=== PATIENT | female | born 1945 | race Caucasian/White ===

== ENCOUNTER 2018-05-05 10:21 | Outpatient (CLI) | payer MEDICARE, BC | END 2018-05-05 10:22 | disposition home or self-care (01) | LOC: BICMAMMO 10:21 | PROVIDERS: ATTEND Family Medicine | DX: Z12.31 Encounter for screening mammogram for malignant neoplasm of breast (principal) | CPT/HCPCS: 77063; 77067 ==

== ENCOUNTER 2018-11-27 10:47 | Outpatient (CLI) | payer MEDICARE, BC ==
--- NOTE | 2018-11-27 12:59 | ULT ---
THYROID ULTRASOUND: HISTORY: Thyroid nodule. TECHNIQUE: Real-time imaging of the right and left lobes of the gland was performed. FINDINGS: The right lobe measures 1.8 x 1.5 x 4.6 cm. The left lobe measures 1.1 x 1.2 x 3.1 cm. On the right side, in the mid pole region, there is 1.1 x 1.4 cm, solid lesion, which is isoechoic to perhaps slightly hyperechoic. It is wider than tall. It does have some punctate echogenic foci ass ociated with it. On the left side, there is a similar but slightly smaller lesion, measuring approximately 9 x 14 mm. IMPRESSION: Bilateral TI-RADS 4 lesions-Moderately suspicious. Fine needle aspiration is recommended only at gre ater than 1.5 cm so, in this case, a follow-up ultrasound examination at 6-12 months would be recomme nded. POS: [facility]
== END 2018-11-27 10:48 | disposition home or self-care (01) ==
LOC: BICULT 10:47
PROVIDERS: ATTEND Family Medicine
DX: E04.1 Nontoxic single thyroid nodule (principal)
CPT/HCPCS: 76536

== ENCOUNTER 2019-06-11 12:12 | Outpatient (CLI) | payer MEDICARE, BC ==
--- NOTE | 2019-06-11 13:27 | ULT ---
THYROID ULTRASOUND: COMPARISON: 11/27/2018. HISTORY: Hypothyroidism. Thyroid nodules. FINDINGS: Thyroid isthmus measures 0.23 cm. Right thyroid lobe measures 4.6 x 1.8 x 1.5 cm. Left thyroid lobe measures 1.2 x 1.1 x 3.1 cm. In the mid right thyroid lobe is a 1.4 x 1.1 x 1.0 cm solid nodule. In the upper pole of the left thy roid lobe there is a 0.9 x 0.8 x 1.4 cm solid nodule with small echogenic foci suggesting calcifications. Previously, the right thyroid nodule measured 1.4 x 1.1 x 1.1 cm. Left thyroid nodule measured 1.3 x 1.2 x 1.5 cm. Both nodules appear to be stable IMPRESSION: Left and right thyroid nodules. Nodules have a TIRAD calculator score of TR4, moderately suspicious. Fine-needle aspiration of both nodules is recommended. Transcribed Date/Time: 06/11/2019 1:35 PM
== END 2019-06-11 12:13 | disposition home or self-care (01) ==
LOC: BICULT 12:12
PROVIDERS: ATTEND Family Medicine
DX: E03.9 Hypothyroidism, unspecified (principal); E04.2 Nontoxic multinodular goiter
CPT/HCPCS: 76536

== ENCOUNTER 2019-10-22 13:41 | Emergency (ER) | payer MEDICARE, BC ==
[2019-10-22 14:08] LABS: #Basophils 0.1 thou/uL (0.0-0.2); #Eosinphils 0.2 thou/uL (0.0-0.7); #Monocytes 0.5 thou/uL (0.11-0.59); #Neutrophils 5.8 thou/uL (1.40-6.50); %Basophils 0.7 % (0.0-1.0); %Lymphocytes 23.2 % (21.0-51.0); %Monocytes 5.5 % (0.0-10.0); %Neutrophils 68.6 % (42.0-75.0); Hemoglobin 12.8 g/dL (12.0-16.0); Mean Corpuscular HGB CONC 35.2 g/dL (32.0-36.0); Mean Corpuscular Hemoglobin 31.6 pg (27.0-31.0); Mean Corpuscular Volume 89.8 fL (78.0-98.0); Mean Platelet Volume 7.7 fL (7.4-10.4); Platelet Count 363 thou/uL (130-400); RBC Distribution Width 11.3 % (11.5-14.5); Red Blood Cell (RBC) Count 4.06 mill/uL (4.20-5.40); White Blood Cell (WBC) Count 8.5 thou/uL (4.8-10.8)
--- NOTE | 2019-10-22 14:25 | RAD ---
CHEST 1 VIEW: Date: 10/22/2019 HISTORY: Shortness of breath and low blood pressure. FINDINGS: Heart size is within normal limits. Lungs are clear. No confluent pneumonia, overt edema, or pleural effusion. IMPRESSION: No significant acute intrathoracic disease. POS: [facility]
[2019-10-22 14:29] LABS: ALT (SGPT) 18 U/L (8-55); AST (SGOT) 17 U/L (5-34); Albumin 4.2 g/dL (3.4-4.8); Alkaline Phosphatase 72 U/L (40-110); Anion Gap 12 mmol/L (10-20); BUN (Urea Nitrogen) 13 mg/dL (9.8-20.1); Bilirubin, Total 0.3 mg/dL (0.2-1.2); Calc. Creatinine Clearance 0 mL/min (70-130); Carbon Dioxide 28 mmol/L (23-31); Chloride 101 mmol/L (98-107); Estimated GFR-MDRD 52; Globulin 2.6 g/dL (2.4-3.5); Glucose 112 mg/dL (83-110); Protein, Total 6.8 g/dL (6.0-8.3); Sodium 137 mmol/L (136-145)
== END 2019-10-22 16:03 | disposition home or self-care (01) ==
LOC: ERS 13:41
DX: R53.1 Weakness (principal); R06.02 Shortness of breath; T46.5X5A Adverse effect of other antihypertensive drugs, initial encounter; E03.9 Hypothyroidism, unspecified; I10 Essential (primary) hypertension; Z79.899 Other long term (current) drug therapy
CPT/HCPCS: 36415; 71045; 80053; 84484; 85025; 93005

== ENCOUNTER 2020-05-10 09:46 | Outpatient (CLI) | payer MEDICARE, BC ==
--- NOTE | 2020-05-11 09:28 | ULT ---
RIGHT BREAST ULTRASOUND: HISTORY: Exam performed to followup a screening mammogram to evaluate a mass in the 2 o'clock position. The right breast is evaluated at 2 o'clock, 1 cm from the nipple. There is a 0.8 x 1.2 x 1.3 cm diam eter circumscribed anechoic cyst in the right breast accounting for the mammographic finding. IMPRESSION: BIRADS category 2, benign findings. Benign right breast cyst at 2 o'clock 1 cm from the nipple. POS: OFF
== END 2020-05-10 09:47 | disposition home or self-care (01) ==
LOC: BICULT 09:46
PROVIDERS: ATTEND Family Medicine
DX: N63.12 Unspecified lump in the right breast, upper inner quadrant (principal); N64.89 Other specified disorders of breast; N60.01 Solitary cyst of right breast

== ENCOUNTER 2020-06-30 07:21 | Outpatient (CLI) | payer MEDICARE, BC ==
--- NOTE | 2020-06-30 08:38 | CT ---
EXAM: CT ABDOMEN AND PELVIS HISTORY: Abdominal pain. Weight loss and constipation. COMPARISON: None. Procedure: Multiple contiguous axial images were obtained and a CT of the abdomen and pelvis with IV contrast. C oronal reformats were performed. FINDINGS: Lower Chest: within normal limits. Vessels: Normal caliber aorta. No periaortic fat stranding Heart: Normal heart size. No significant pericardial fluid Abdomen: Portal vein:Patent Gallbladder: Contracted, likely due to nonfasting state Liver: within normal limits. Pancreas: within normal limits. Spleen: within normal limits. Adrenals: within normal limits. Kidneys: Symmetric enhancement. No obstructive uropathy. Peritoneum: No ascites or free air, no fluid collection. Bowel: No evidence of bowel obstruction. Ileocecal junction is unremarkable. Normal caliber appendix. Scattered fecal material in a nondistended, nondilated colon. Occasional diverticulum. No diverticulitis. No CT evidence of constipation. Mesentery and Retroperitoneum: No enlarged mesenteric or retroperitoneal lymph nodes. Abdominal Wall: within normal limits. Pelvis: Reproductive Organs: Surgically absent uterus Pelvis: No mass, lymphadenopathy, free air or free fluid. Bladder: within normal limits. Bones: within normal limits. IMPRESSION: 1. Normal caliber appendix 2. No CT evidence of constipation. Occasional diverticulum. No diverticulitis.
[2020-06-30] MEDS ORDERED: Iopamidol-370 76% 500 ML 1 ML ONE (09:36)
== END 2020-06-30 07:22 | disposition home or self-care (01) ==
LOC: BICCT 07:21
PROVIDERS: ATTEND Family Medicine
DX: R10.30 Lower abdominal pain, unspecified (principal); K59.00 Constipation, unspecified; R63.4 Abnormal weight loss; K38.2 Diverticulum of appendix
CPT/HCPCS: 74177; 82565; Q9967

== ENCOUNTER 2021-01-17 10:42 | Outpatient (CLI) | payer MEDICARE, BC | END 2021-01-17 10:43 | disposition home or self-care (01) | LOC: BICULT 10:42 | PROVIDERS: ATTEND Family Medicine | DX: E04.2 Nontoxic multinodular goiter (principal) | CPT/HCPCS: 76536 ==

== ENCOUNTER 2021-05-11 10:13 | Day surgery (SDC) | payer MEDICARE, BC ==
[2021-05-10 11:08] VITALS: BMI 29.8
[2021-05-11] MEDS ORDERED: PROPOFOL 20 ML ONE (12:35)
== END 2021-05-11 13:54 | disposition home or self-care (01) ==
LOC: CCL 10:13
PROVIDERS: ATTEND Internal Medicine Cardiovascular Disease
PROC: B246ZZ4 Ultrasonography of Right and Left Heart, Transesophageal (ICD-10-PCS; principal; 2021-05-11)
PROC: 5A2204Z Restoration of Cardiac Rhythm, Single (ICD-10-PCS; 2021-05-11)
DX: I48.91 Unspecified atrial fibrillation (principal); I08.3 Combined rheumatic disorders of mitral, aortic and tricuspid valves; I48.4 Atypical atrial flutter; I10 Essential (primary) hypertension; I25.10 Atherosclerotic heart disease of native coronary artery without angina pectoris; E78.5 Hyperlipidemia, unspecified; Z79.01 Long term (current) use of anticoagulants; Z79.82 Long term (current) use of aspirin; Z79.899 Other long term (current) drug therapy
CPT/HCPCS: 92960; 93005; 93010; 93312; J2704

== ENCOUNTER 2021-10-27 03:58 | Emergency (ER) | payer MEDICARE, BC ==
[2021-10-27] MEDS ORDERED: HYDROcodone/Acetaminophen 5/325 mg Tablet ONE (05:17)
[2021-10-27] MEDS ORDERED: Ondansetron ODT 4 MG TAB ONE (06:02)
== END 2021-10-27 06:16 | disposition home or self-care (01) ==
LOC: ERS 03:58
DX: S83.91XA Sprain of unspecified site of right knee, initial encounter (principal); I10 Essential (primary) hypertension; E03.9 Hypothyroidism, unspecified; X50.3XXA Overexertion from repetitive movements, initial encounter; Y93.01 Activity, walking, marching and hiking; Z79.01 Long term (current) use of anticoagulants; Z79.899 Other long term (current) drug therapy
CPT/HCPCS: Q0162

== ENCOUNTER 2021-11-10 18:30 | Emergency (ER) | payer MEDICARE, BC ==
[2021-11-10 21:15] LABS: #Eosinphils 0.3 thou/uL (0.0-0.7); #Lymphocytes 1.9 thou/uL (1.20-3.40); #Monocytes 0.6 thou/uL (0.11-0.59); #Neutrophils 6.3 thou/uL (1.40-6.50); %Basophils 0.4 % (0.0-1.0); %Eosinophils 3.1 % (0.0-10.0); %Lymphocytes 21.1 % (21.0-51.0); %Monocytes 6.7 % (0.0-10.0); %Neutrophils 68.7 % (42.0-75.0); Hemoglobin 12.9 g/dL (12.0-16.0); Mean Corpuscular HGB CONC 34.3 g/dL (32.0-36.0); Mean Corpuscular Hemoglobin 31.5 pg (27.0-31.0); Mean Corpuscular Volume 92.1 fL (78.0-98.0); Mean Platelet Volume 7.2 fL (7.4-10.4); Platelet Count 360 thou/uL (130-400); Red Blood Cell (RBC) Count 4.09 mill/uL (4.20-5.40); White Blood Cell (WBC) Count 9.2 thou/uL (4.8-10.8)
[2021-11-10 21:41] LABS: ALT (SGPT) 11 U/L (8-55); AST (SGOT) 13 U/L (5-34); Albumin 4.1 g/dL (3.4-4.8); Alkaline Phosphatase 65 U/L (40-110); Anion Gap 16 mmol/L (10-20); BUN (Urea Nitrogen) 13 mg/dL (9.8-20.1); Bilirubin, Total 0.3 mg/dL (0.2-1.2); Calc. Creatinine Clearance 0 mL/min (70-130); Carbon Dioxide 26 mmol/L (23-31); Chloride 98 mmol/L (98-107); Globulin 2.3 g/dL (2.4-3.5); Glucose 115 mg/dL (83-110); Potassium 4.1 mmol/L (3.5-5.1); Protein, Total 6.4 g/dL (5.8-8.1); Sodium 136 mmol/L (136-145)
== END 2021-11-10 22:02 | disposition home or self-care (01) ==
LOC: ERS 18:30
DX: I10 Essential (primary) hypertension (principal); R11.0 Nausea; E03.9 Hypothyroidism, unspecified; Z79.899 Other long term (current) drug therapy; Z79.01 Long term (current) use of anticoagulants
CPT/HCPCS: 36415; 71045; 80053; 84484; 85025; 93005

== ENCOUNTER 2021-11-22 12:36 | Outpatient (CLI) | payer MEDICARE, BC ==
[2021-11-22 14:57] LABS: #Basophils 0.1 10x3/uL (0.0-0.2); #Eosinphils 0.2 10x3/uL (0.0-0.5); #Monocytes 0.5 10x3/uL (0.0-1.1); #Neutrophils 6.3 10x3/uL (1.5-8.4); %Basophils 0.8 % (0.0-2.0); %Eosinophils 2.3 % (0.0-6.0); %Lymphocytes 18.8 % (18.0-47.0); %Monocytes 5.8 % (0.0-10.0); %Neutrophils 72.1 % (40.0-75.0); Hemoglobin 13.3 g/dL (12.0-15.5); Mean Corpuscular HGB CONC 34.7 g/dL (32.0-36.0); Mean Corpuscular Hemoglobin 30.1 pg (27.0-33.0); Mean Corpuscular Volume 86.7 fl (81.6-98.3); Mean Platelet Volume 9.8 fl (7.4-10.4); Platelet Count 419 10x3/uL (150-450); Red Blood Cell (RBC) Count 4.42 10x6/uL (3.90-5.03); White Blood Cell (WBC) Count 8.8 10x3/uL (3.5-10.5)
[2021-11-22 15:12] LABS: PTT 27.8 sec (22.0-33.0); Prothrombin Time 10.9 sec (9.5-12.1)
[2021-11-22 15:21] LABS: Anion Gap 15 mmol/L (10-20); BUN (Urea Nitrogen) 13 mg/dL (9.8-20.1); Calc. Creatinine Clearance 0 mL/min (70-130); Calcium 9.3 mg/dL (7.8-10.44); Carbon Dioxide 28 mmol/L (23-31); Chloride 95 mmol/L (98-107); Glucose 147 mg/dL (83-110); Potassium 3.8 mmol/L (3.5-5.1); Sodium 134 mmol/L (136-145)
[2021-11-22 22:39] LABS: SARS-CoV-2 PCR by NAA Not Detected (NotDetected)
== END 2021-11-22 12:37 | disposition home or self-care (01) ==
LOC: LABBT 12:36
PROVIDERS: ATTEND Internal Medicine Cardiovascular Disease
DX: Z01.812 Encounter for preprocedural laboratory examination (principal); Z20.822 Contact with and (suspected) exposure to COVID-19
CPT/HCPCS: 80048; 85025; 85610; 85730; U0003; U0005

== ENCOUNTER 2022-01-08 14:10 | Outpatient (CLI) | payer MEDICARE, BC | END 2022-01-08 14:11 | disposition home or self-care (01) | LOC: TBSIIMAG 14:10 | PROVIDERS: ATTEND Family Medicine | DX: M25.561 Pain in right knee (principal); S83.241A Other tear of medial meniscus, current injury, right knee, initial encounter; R60.0 Localized edema; M84.48XA Pathological fracture, other site, initial encounter for fracture ==

== ENCOUNTER 2022-01-16 09:30 | Outpatient (CLI) | payer MEDICARE, BC ==
[2022-01-16 10:58] LABS: Hemoglobin 12.8 g/dL (12.0-15.5); Mean Corpuscular HGB CONC 35.2 g/dL (32.0-36.0); Mean Corpuscular Hemoglobin 30.5 pg (27.0-33.0); Mean Corpuscular Volume 86.7 fl (81.6-98.3); Mean Platelet Volume 9.5 fl (7.4-10.4); Platelet Count 364 10x3/uL (150-450); RBC Distribution Width 11.9 % (11.5-14.5); White Blood Cell (WBC) Count 6.1 10x3/uL (3.5-10.5)
[2022-01-16 11:19] LABS: PTT 27.3 sec (22.0-33.0); Prothrombin Time 10.9 sec (9.5-12.1)
[2022-01-16 11:27] LABS: Anion Gap 12 mmol/L (10-20); BUN (Urea Nitrogen) 9 mg/dL (9.8-20.1); Calc. Creatinine Clearance 0 mL/min (70-130); Calcium 9.4 mg/dL (7.8-10.44); Carbon Dioxide 29 mmol/L (23-31); Chloride 96 mmol/L (98-107); Glucose 166 mg/dL (83-110); Potassium 3.8 mmol/L (3.5-5.1); Sodium 133 mmol/L (136-145)
[2022-01-16 21:09] LABS: SARS-CoV-2 PCR by NAA Not Detected (NotDetected)
== END 2022-01-16 09:31 | disposition home or self-care (01) ==
LOC: LABBT 09:30
PROVIDERS: ATTEND Internal Medicine Cardiovascular Disease
DX: Z01.812 Encounter for preprocedural laboratory examination (principal); I48.19 Other persistent atrial fibrillation; Z20.822 Contact with and (suspected) exposure to COVID-19
CPT/HCPCS: 80048; 85027; 85610; 85730; U0003; U0005

== ENCOUNTER 2022-01-21 05:48 | Day surgery (SDC) | payer MEDICARE, BC ==
[2022-01-16 15:16] VITALS: BMI 29.8
[2022-01-21] MEDS ORDERED: Protamine Sulfate 50 MG/5 ML VIAL ONE (06:46)
[2022-01-21] MEDS ORDERED: Heparin 10,000 UNITS/ 10 ML VIAL ONE (06:46)
[2022-01-21] MEDS ORDERED: Heparin 25,000 units/D5W 500 ML ONE (06:46)
[2022-01-21] MEDS ORDERED: Isoproterenol 0.2 MG/1 ML AMP ONE (06:46)
[2022-01-21] MEDS ORDERED: fentaNYL Citrate/PF 100 MCG/2 ML SYRINGE ONE (06:51)
[2022-01-21] MEDS ORDERED: Dexmedetomidine 200 MCG/2 ML VIAL ONE ×2 (06:51→07:07)
[2022-01-21] MEDS ORDERED: Dexamethasone 20 MG/5 ML VIAL ONE (07:46)
[2022-01-21] MEDS ORDERED: Lidocaine 1% PF 5 ML VIAL ONE (07:46)
[2022-01-21] MEDS ORDERED: ePHEDrine 50 MG/ML VIAL ONE (07:46)
[2022-01-21] MEDS ORDERED: Ondansetron PF 4 MG/2 ML Vial ONE (07:46)
[2022-01-21] MEDS ORDERED: Glycopyrrolate 0.2 MG/ML 5 ML SYRINGE ONE (07:46)
[2022-01-21] MEDS ORDERED: PROPOFOL 200 MG/20 ML VIAL ONE (07:46)
[2022-01-21] MEDS ORDERED: Rocuronium Bromide 10 MG/ML (10ML VIAL) ONE (07:46)
[2022-01-21] MEDS ORDERED: PHENYLEPHRINE-NS 100 MCG/ML 10 ML SYRINGE ONE (07:46)
== END 2022-01-21 15:05 | disposition home or self-care (01) ==
LOC: SDC 05:48
PROVIDERS: ATTEND Internal Medicine Cardiovascular Disease
PROC: 02583ZZ Destruction of Conduction Mechanism, Percutaneous Approach (ICD-10-PCS; principal; 2022-01-21)
PROC: 02K83ZZ Map Conduction Mechanism, Percutaneous Approach (ICD-10-PCS; 2022-01-21)
PROC: 4A023FZ Measurement of Cardiac Rhythm, Percutaneous Approach (ICD-10-PCS; 2022-01-21)
PROC: 4A0234Z Measurement of Cardiac Electrical Activity, Percutaneous Approach (ICD-10-PCS; 2022-01-21)
DX: I48.19 Other persistent atrial fibrillation (principal); I11.9 Hypertensive heart disease without heart failure; I34.0 Nonrheumatic mitral (valve) insufficiency; E78.5 Hyperlipidemia, unspecified; I25.10 Atherosclerotic heart disease of native coronary artery without angina pectoris; Z79.01 Long term (current) use of anticoagulants; Z79.890 Hormone replacement therapy; Z79.899 Other long term (current) drug therapy; Z95.1 Presence of aortocoronary bypass graft
CPT/HCPCS: 85347 ×2; 93005; 93613; 93623; 93656; 93657; 93662; C1732 ×2; C1759; C1760; J1100; J1644; J2405; J2704; J2720; J3490

== ENCOUNTER 2022-06-02 12:49 | Observation (INO) | payer MEDICARE, BC ==
[2022-06-02] MEDS ORDERED: Aspirin Chewable 81 MG TAB ONE ×2 (13:42→13:54)
[2022-06-02] MEDS ORDERED: Diltiazem HCl 125 MG, Admixture Fee 1 EACH in Sodium Chloride 0.9% 100 ML IVPB SCH (14:00)
[2022-06-02 14:09] LABS: #Eosinphils 0.3 thou/uL (0.0-0.7); #Lymphocytes 1.6 thou/uL (1.20-3.40); #Monocytes 0.6 thou/uL (0.11-0.59); #Neutrophils 6.7 thou/uL (1.40-6.50); %Basophils 0.5 % (0.0-1.0); %Eosinophils 2.9 % (0.0-10.0); %Lymphocytes 17.7 % (21.0-51.0); %Monocytes 6.1 % (0.0-10.0); %Neutrophils 72.9 % (42.0-75.0); Hemoglobin 14.3 g/dL (12.0-16.0); Mean Corpuscular HGB CONC 35.1 g/dL (32.0-36.0); Mean Corpuscular Volume 88.3 fL (78.0-98.0); Mean Platelet Volume 6.7 fL (7.4-10.4); Platelet Count 390 thou/uL (130-400); RBC Distribution Width 11.1 % (11.5-14.5); White Blood Cell (WBC) Count 9.2 thou/uL (4.8-10.8)
[2022-06-02 14:10] LABS: ALT (SGPT) 14 U/L (8-55); AST (SGOT) 22 U/L (5-34); Albumin 4.5 g/dL (3.4-4.8); Alkaline Phosphatase 90 U/L (40-110); Anion Gap 18 mmol/L (10-20); BUN (Urea Nitrogen) 10 mg/dL (9.8-20.1); Bilirubin, Total 0.6 mg/dL (0.2-1.2); CK (CPK) 83 U/L (29-168); Calc. Creatinine Clearance 0 mL/min (70-130); Calcium 9.8 mg/dL (7.8-10.44); Carbon Dioxide 21 mmol/L (23-31); Chloride 97 mmol/L (98-107); Estimated GFR 64; Globulin 3.1 g/dL (2.4-3.5); Glucose 122 mg/dL (83-110); Potassium 3.9 mmol/L (3.5-5.1); Protein, Total 7.6 g/dL (5.8-8.1); Sodium 132 mmol/L (136-145)
[2022-06-02] MEDS ORDERED: Acetaminophen 325 MG TAB PO PRN (15:44)
[2022-06-02] MEDS ORDERED: Polyethylene Glycol 3350 17 GM Packet PO PRN (15:47)
[2022-06-02] MEDS ORDERED: Hydrochlorothiazide 25 MG TAB PO PRN (16:10)
[2022-06-02 16:33] LABS: Magnesium 1.9 mg/dL (1.6-2.6)
[2022-06-02 16:38] LABS: Troponin I Less than 0.010 ng/mL (< 0.028)
[2022-06-02 18:13] VITALS: BMI 29.5
[2022-06-02 20:15] LABS: Troponin I Less than 0.010 ng/mL (< 0.028)
[2022-06-02] MEDS ORDERED: Atorvastatin Calcium 20 MG TAB PO SCH (21:00)
[2022-06-02] MEDS: Apixaban 5 MG TAB PO SCH (21:45)
[2022-06-02] MEDS: Famotidine 20 MG TAB PO SCH (21:46)
[2022-06-02] MEDS: Losartan 25 MG TAB PO SCH (21:55)
[2022-06-03 05:01] LABS: #Basophils 0.1 thou/uL (0.0-0.2); #Eosinphils 0.3 thou/uL (0.0-0.7); #Lymphocytes 2.1 thou/uL (1.20-3.40); #Monocytes 0.6 thou/uL (0.11-0.59); #Neutrophils 4.2 thou/uL (1.40-6.50); %Basophils 0.9 % (0.0-1.0); %Eosinophils 4.1 % (0.0-10.0); %Lymphocytes 29.3 % (21.0-51.0); %Monocytes 8.5 % (0.0-10.0); %Neutrophils 57.2 % (42.0-75.0); Mean Corpuscular HGB CONC 35.5 g/dL (32.0-36.0); Mean Corpuscular Hemoglobin 31.8 pg (27.0-31.0); Mean Corpuscular Volume 89.5 fL (78.0-98.0); Mean Platelet Volume 7.1 fL (7.4-10.4); Platelet Count 383 thou/uL (130-400); RBC Distribution Width 11.3 % (11.5-14.5); Red Blood Cell (RBC) Count 4.72 mill/uL (4.20-5.40); White Blood Cell (WBC) Count 8.2 thou/uL (4.8-10.8)
[2022-06-03 05:05] LABS: Anion Gap 14 mmol/L (10-20); BUN (Urea Nitrogen) 9 mg/dL (9.8-20.1); Calc. Creatinine Clearance 73 mL/min (70-130); Calcium 9.3 mg/dL (7.8-10.44); Carbon Dioxide 23 mmol/L (23-31); Chloride 101 mmol/L (98-107); Estimated GFR 78; Glucose 108 mg/dL (83-110); Potassium 3.8 mmol/L (3.5-5.1); Sodium 134 mmol/L (136-145)
[2022-06-03] MEDS ORDERED: Levothyroxine Sodium 50 MCG TAB PO SCH (06:00)
[2022-06-03] MEDS ORDERED: Amlodipine 5 MG TAB PO SCH (09:00)
[2022-06-03] MEDS ORDERED: Flecainide 50 MG TAB PO SCH (09:00)
[2022-06-03] MEDS ORDERED: Estrogens, Conjugated 0.3 MG TAB PO SCH (09:00)
[2022-06-03] MEDS: Apixaban 5 MG TAB PO SCH (09:16)
[2022-06-03] MEDS: Famotidine 20 MG TAB PO SCH (09:16)
[2022-06-03] MEDS: Losartan 25 MG TAB PO SCH (09:16)
[2022-06-03] MEDS ORDERED: PROPOFOL 40 ML ONE (10:06)
[2022-06-03] MEDS ORDERED: Lidocaine 1% MPF 2 ML VIAL ONE (13:26)
[2022-06-03] MEDS ORDERED: PROPOFOL 200 MG/20 ML VIAL ONE (13:26)
[2022-06-03 16:10] VITALS: BP 161/73; TEMP 98.5
== END 2022-06-03 17:30 | disposition home or self-care (01) ==
LOC: ERS 12:49 → 2NO 15:20
PROVIDERS: ADMIT Student in an Organized Health Care Education/Training Program; ATTEND Student in an Organized Health Care Education/Training Program
PROC: 5A2204Z Restoration of Cardiac Rhythm, Single (ICD-10-PCS; principal; 2022-06-03)
DX: I48.19 Other persistent atrial fibrillation (principal); E87.1 Hypo-osmolality and hyponatremia; I10 Essential (primary) hypertension; E78.5 Hyperlipidemia, unspecified; E03.9 Hypothyroidism, unspecified; R00.1 Bradycardia, unspecified; Z79.01 Long term (current) use of anticoagulants; Z79.899 Other long term (current) drug therapy; Z20.822 Contact with and (suspected) exposure to COVID-19
CPT/HCPCS: 71045; 80048; 82550; 83735; 84484 ×2; 85025; 92960; 93005 ×2; 96365; 96366; 96376; 99285; G0378 ×3; U0003; U0005; 36415; 80053; 84443; 93010; 96374; J2704; J3490

== ENCOUNTER 2022-06-07 09:11 | Outpatient (CLI) | payer MEDICARE, BC | END 2022-06-07 09:12 | disposition home or self-care (01) | LOC: BICMAMMO 09:11 | PROVIDERS: ATTEND Family Medicine | DX: N63.42 Unspecified lump in left breast, subareolar (principal) | CPT/HCPCS: 76642; 77066; G0279 ==

== ENCOUNTER 2022-08-22 09:51 | Outpatient (CLI) | payer MEDICARE, BC ==
[2022-08-22 11:10] LABS: #Eosinphils 0.2 10x3/uL (0.0-0.5); #Monocytes 0.5 10x3/uL (0.0-1.1); #Neutrophils 4.6 10x3/uL (1.5-8.4); %Basophils 0.5 % (0.0-2.0); %Eosinophils 3.1 % (0.0-6.0); %Lymphocytes 16.4 % (18.0-47.0); %Monocytes 7.8 % (0.0-10.0); %Neutrophils 71.9 % (40.0-75.0); Hemoglobin 13.1 g/dL (12.0-15.5); Mean Corpuscular HGB CONC 35.8 g/dL (32.0-36.0); Mean Corpuscular Hemoglobin 30.1 pg (27.0-33.0); Mean Corpuscular Volume 84.1 fl (81.6-98.3); Mean Platelet Volume 9.5 fl (7.4-10.4); Platelet Count 389 10x3/uL (150-450); RBC Distribution Width 12.3 % (11.5-14.5); Red Blood Cell (RBC) Count 4.35 10x6/uL (3.90-5.03); White Blood Cell (WBC) Count 6.4 10x3/uL (3.5-10.5)
[2022-08-22 11:41] LABS: ALT (SGPT) 25 U/L (8-55); AST (SGOT) 14 U/L (5-34); Albumin 4.4 g/dL (3.4-4.8); Alkaline Phosphatase 85 U/L (40-110); Anion Gap 14 mmol/L (10-20); BUN (Urea Nitrogen) 9 mg/dL (9.8-20.1); Bilirubin, Total 0.9 mg/dL (0.2-1.2); Calc. Creatinine Clearance 0 mL/min (70-130); Calcium 9.7 mg/dL (7.8-10.44); Carbon Dioxide 27 mmol/L (23-31); Cardiac Risk 2.1 (Less than 4.5); Chloride 92 mmol/L (98-107); Cholesterol 134 mg/dl (< 200 Desired); Estimated GFR 67; Globulin 2.3 g/dL (2.4-3.5); Glucose 109 mg/dL (83-110); HDL Cholesterol 63 mg/dL (>60 Neg Risk); LDL Cholesterol, Calculated 53 mg/dL; Potassium 4.1 mmol/L (3.5-5.1); Protein, Total 6.7 g/dL (5.8-8.1); Sodium 129 mmol/L (136-145); Triglycerides 91 mg/dL (Less than 150)
[2022-08-22 11:48] LABS: PTT 29.1 sec (22.0-33.0)
[2022-08-22 11:54] LABS: Free T4 (Free Thyroxine) 1.12 ng/dL (0.70-1.48); Thyroid Stimulating Hormone 1.3282 uIU/mL (0.35-4.94)
== END 2022-08-22 09:52 | disposition home or self-care (01) ==
LOC: LABBT 09:51
PROVIDERS: ATTEND Internal Medicine Cardiovascular Disease
DX: Z01.818 Encounter for other preprocedural examination (principal); I48.19 Other persistent atrial fibrillation
CPT/HCPCS: 80053; 80061; 83036; 84439; 84443; 85025; 85610; 85730; 93005; 93010

== ENCOUNTER 2022-08-26 05:51 | Day surgery (SDC) | payer MEDICARE, BC ==
[2022-08-22 15:11] VITALS: BMI 28.5
[2022-08-26] MEDS ORDERED: Heparin 25,000 units/D5W 500 ML ONE (06:49)
[2022-08-26] MEDS ORDERED: Protamine Sulfate 50 MG/5 ML VIAL ONE ×2 (06:49→06:52)
[2022-08-26] MEDS ORDERED: Heparin 10,000 UNITS/ 10 ML VIAL ONE (06:49)
[2022-08-26] MEDS ORDERED: Isoproterenol 0.2 MG/1 ML AMP ONE (06:49)
[2022-08-26] MEDS ORDERED: Midazolam HCl 2 mg/2 ml Vial ONE (07:59)
[2022-08-26] MEDS ORDERED: PROPOFOL 200 MG/20 ML VIAL ONE (08:08)
[2022-08-26] MEDS ORDERED: GLYCOPYRROLATE/PF 0.2 MG/ML VIAL ONE (08:08)
[2022-08-26] MEDS ORDERED: ePHEDrine 50 MG/ML VIAL ONE (08:08)
[2022-08-26] MEDS ORDERED: Ondansetron PF 4 MG/2 ML Vial ONE (08:08)
[2022-08-26] MEDS ORDERED: NEOSTIGMINE 3 MG/3 ML SYR 3 MG/3 ML SYRINGE ONE (08:08)
[2022-08-26] MEDS ORDERED: Rocuronium Bromide 10 MG/ML (10ML VIAL) ONE (08:08)
[2022-08-26] MEDS ORDERED: Dexamethasone 20 MG/5 ML VIAL ONE (08:08)
[2022-08-26] MEDS ORDERED: Phenylephrine 10 MG/ML VIAL ONE (08:08)
[2022-08-26] MEDS ORDERED: FENTANYL 50 MCG/ML 1 ML VIAL ONE (11:34)
== END 2022-08-26 15:30 | disposition home or self-care (01) ==
LOC: SDC 05:51
PROVIDERS: ATTEND Internal Medicine Cardiovascular Disease
PROC: 02583ZZ Destruction of Conduction Mechanism, Percutaneous Approach (ICD-10-PCS; principal; 2022-08-26)
PROC: 02K83ZZ Map Conduction Mechanism, Percutaneous Approach (ICD-10-PCS; 2022-08-26)
PROC: 4A023FZ Measurement of Cardiac Rhythm, Percutaneous Approach (ICD-10-PCS; 2022-08-26)
PROC: 4A0234Z Measurement of Cardiac Electrical Activity, Percutaneous Approach (ICD-10-PCS; 2022-08-26)
DX: I48.19 Other persistent atrial fibrillation (principal); I48.4 Atypical atrial flutter; I25.10 Atherosclerotic heart disease of native coronary artery without angina pectoris; E78.5 Hyperlipidemia, unspecified; I10 Essential (primary) hypertension; Z79.01 Long term (current) use of anticoagulants; Z79.890 Hormone replacement therapy; Z79.899 Other long term (current) drug therapy; Z95.1 Presence of aortocoronary bypass graft
CPT/HCPCS: 85347 ×2; 93005; 93623; 93656; C1732 ×2; C1759; C1760; C1769; C1884; C1894; J3010; J3490; J1100; J1644; J2250; J2370; J2405; J2704; J2720

== ENCOUNTER 2022-09-30 04:00 | Inpatient (IN) | payer MEDICARE, BC ==
[2022-09-30] MEDS ORDERED: Nitroglycerin 2% Ointment 1 INCH/1 GM Packet ONE (04:47)
[2022-09-30 04:56] LABS: #Eosinphils 0.3 thou/uL (0.0-0.7); #Lymphocytes 2.1 thou/uL (1.20-3.40); #Monocytes 0.6 thou/uL (0.11-0.59); #Neutrophils 6.7 thou/uL (1.40-6.50); %Basophils 0.3 % (0.0-1.0); %Eosinophils 3.2 % (0.0-10.0); %Lymphocytes 21.5 % (21.0-51.0); %Monocytes 5.7 % (0.0-10.0); %Neutrophils 69.3 % (42.0-75.0); Hemoglobin 13.1 g/dL (12.0-16.0); Mean Corpuscular HGB CONC 34.7 g/dL (32.0-36.0); Mean Corpuscular Hemoglobin 31.3 pg (27.0-31.0); Mean Corpuscular Volume 90.2 fl (78.0-98.0); Mean Platelet Volume 7.2 fL (7.4-10.4); Platelet Count 375 10x3/uL (130-400); RBC Distribution Width 11.7 % (11.5-14.5); Red Blood Cell (RBC) Count 4.19 mill/uL (4.20-5.40); White Blood Cell (WBC) Count 9.7 10x3/uL (4.8-10.8)
[2022-09-30] MEDS ORDERED: hydrALAZINE 25 MG TAB ONE (05:04)
[2022-09-30 06:08] LABS: Albumin 3.5 g/dL (3.4-4.8)
[2022-09-30 06:09] LABS: Chloride 102 mmol/L (98-107); Sodium 131 mmol/L (136-145)
[2022-09-30 06:10] LABS: Calcium 8.5 mg/dL (7.8-10.44); Glucose 121 mg/dL (83-110)
[2022-09-30 06:11] LABS: Globulin 2.1 g/dL (2.4-3.5); Protein, Total 5.6 g/dL (5.8-8.1)
[2022-09-30 06:12] LABS: Anion Gap 11 mmol/L (10-20); Bilirubin, Total 0.7 mg/dL (0.2-1.2); Carbon Dioxide 22 mmol/L (23-31)
[2022-09-30 06:13] LABS: Alkaline Phosphatase 98 U/L (40-110)
[2022-09-30 06:14] LABS: Calc. Creatinine Clearance 0 mL/min (70-130); Estimated GFR 81
[2022-09-30 06:15] LABS: BUN (Urea Nitrogen) 11 mg/dL (9.8-20.1)
[2022-09-30 06:16] LABS: ALT (SGPT) 89 U/L (8-55); AST (SGOT) 43 U/L (5-34)
[2022-09-30 06:17] LABS: Lipase 32 U/L (8-78)
[2022-09-30 08:19] LABS: Troponin I 0.217 ng/mL (< 0.028)
[2022-09-30 09:09] LABS: Bilirubin Negative (Negative); Blood, Urine Negative (Negative); Clarity Clear (Clear); Glucose, Urine (Dipstick) Normal (Negative); Ketone, Urine Negative (Negative); Leukocyte Negative Leu/uL (Negative); Nitrite Negative (Negative); Protein, Urine (Dipstick) Negative (Neg-Trace); Specific Gravity, Urine 1.007 (1.002-1.036); Urobilinogen Normal mg/dL (Less than 2)
[2022-09-30 09:33] LABS: SARS-CoV-2 NAA Rapid Test Not Detected (NotDetected)
[2022-09-30 11:10] LABS: Troponin I 0.379 ng/mL (< 0.028)
[2022-09-30] MEDS ORDERED: Metoprolol Tartrate 25 MG TAB ONE (11:56)
[2022-09-30] MEDS: Losartan 25 MG TAB PO SCH ×2 (12:12→20:33)
[2022-09-30] MEDS ORDERED: Acetaminophen 325 MG TAB ONE (12:28)
[2022-09-30] MEDS: Acetaminophen 325 MG TAB PO PRN (12:37)
[2022-09-30 13:40] VITALS: BMI 29.5
[2022-09-30] MEDS ORDERED: Ondansetron ODT 4 MG TAB PO PRN (13:42)
[2022-09-30] MEDS ORDERED: Ondansetron PF 4 MG/2 ML Vial IVP PRN (13:42)
[2022-09-30] MEDS: Furosemide 20 MG/2 ML VIAL SLOW IVP SCH (14:05)
[2022-09-30] MEDS ORDERED: Amlodipine 5 MG TAB PO SCH (17:30)
[2022-09-30] MEDS: Atorvastatin Calcium 20 MG TAB PO SCH (20:33)
[2022-10-01 04:51] LABS: #Basophils 0.1 thou/uL (0.0-0.2); #Eosinphils 0.2 thou/uL (0.0-0.7); #Lymphocytes 1.9 thou/uL (1.20-3.40); #Monocytes 0.5 thou/uL (0.11-0.59); #Neutrophils 5.2 thou/uL (1.40-6.50); %Basophils 0.7 % (0.0-1.0); %Eosinophils 2.9 % (0.0-10.0); %Lymphocytes 24.2 % (21.0-51.0); %Monocytes 6.5 % (0.0-10.0); %Neutrophils 65.7 % (42.0-75.0); Mean Corpuscular HGB CONC 33.9 g/dL (32.0-36.0); Mean Corpuscular Volume 91.3 fl (78.0-98.0); Mean Platelet Volume 7.3 fL (7.4-10.4); Platelet Count 337 10x3/uL (130-400); RBC Distribution Width 11.6 % (11.5-14.5); Red Blood Cell (RBC) Count 4.18 mill/uL (4.20-5.40); White Blood Cell (WBC) Count 7.9 10x3/uL (4.8-10.8)
[2022-10-01 05:07] LABS: Anion Gap 14 mmol/L (10-20); BUN (Urea Nitrogen) 9 mg/dL (9.8-20.1); Calc. Creatinine Clearance 72 mL/min (70-130); Calcium 8.9 mg/dL (7.8-10.44); Carbon Dioxide 22 mmol/L (23-31); Chloride 103 mmol/L (98-107); Estimated GFR 77; Glucose 97 mg/dL (83-110); Sodium 135 mmol/L (136-145)
[2022-10-01] MEDS: Levothyroxine Sodium 50 MCG TAB PO SCH (05:09)
[2022-10-01] MEDS: Furosemide 20 MG/2 ML VIAL SLOW IVP SCH ×2 (05:09→13:00)
[2022-10-01] MEDS: Amlodipine 5 MG TAB PO SCH (09:09)
[2022-10-01] MEDS: Losartan 25 MG TAB PO SCH ×2 (09:10→21:38)
[2022-10-01] MEDS: Atorvastatin Calcium 20 MG TAB PO SCH (21:39)
[2022-10-01] MEDS: Acetaminophen 325 MG TAB PO PRN (21:44)
[2022-10-02] MEDS ORDERED: Sodium Chloride 0.9% 1,000 ML IV SCH (01:30)
[2022-10-02] MEDS: Levothyroxine Sodium 50 MCG TAB PO SCH (05:21)
[2022-10-02] MEDS ORDERED: Nitroglycerin 100MG/250ML BOT 0 ML ONE (06:26)
[2022-10-02] MEDS ORDERED: Lidocaine 1% (PF) 30 ML VIAL ONE (06:26)
[2022-10-02] MEDS ORDERED: Adenosine 6 MG/2 ML VIAL ONE (06:26)
[2022-10-02] MEDS ORDERED: Heparin 10,000 UNITS/ 10 ML VIAL ONE (06:26)
[2022-10-02] MEDS: Furosemide 20 MG/2 ML VIAL SLOW IVP SCH ×2 (06:35→15:16)
[2022-10-02] MEDS ORDERED: Midazolam HCl 2 mg/2 ml Vial ONE (07:24)
[2022-10-02] MEDS ORDERED: FENTANYL 50 MCG/ML 1 ML VIAL ONE (07:25)
[2022-10-02] MEDS ORDERED: Sodium Chloride 0.9% 200 ML IV PRN (07:53)
[2022-10-02] MEDS ORDERED: Nitroglycerin 0.4 MG TAB (25 Tab Bottle) SL PRN (07:53)
[2022-10-02] MEDS ORDERED: Acetaminophen/Codeine 30-300mg Tablet PO PRN (07:53)
[2022-10-02] MEDS ORDERED: Sodium Chloride 0.9% 500 ML IV SCH (08:00)
[2022-10-02] MEDS: Amlodipine 5 MG TAB PO SCH (10:28)
[2022-10-02] MEDS: Sacubitril 49 MG/Valsartan 51 MG TABLET PO SCH ×2 (10:28→20:50)
[2022-10-02] MEDS ORDERED: cefTRIAXone\\ROCEPHIN 1 GM in Sodium Chloride 0.9% 100 ML IVPB SCH (13:15)
[2022-10-02] MEDS ORDERED: Iopamidol 370 76% 100 ML VIAL ONE (14:55)
[2022-10-02] MEDS: Acetaminophen 325 MG TAB PO PRN (16:05)
[2022-10-02 16:26] LABS: Legionella Urinary Ag Negative (Negative); Strep pneumo Urine Ag NEGATIVE (NEGATIVE)
[2022-10-02] MEDS: Apixaban 5 MG TAB PO SCH (20:50)
[2022-10-02] MEDS: Atorvastatin Calcium 20 MG TAB PO SCH (20:50)
[2022-10-03 05:23] LABS: #Eosinphils 0.3 thou/uL (0.0-0.7); #Lymphocytes 1.7 thou/uL (1.20-3.40); #Monocytes 0.7 thou/uL (0.11-0.59); #Neutrophils 5.2 thou/uL (1.40-6.50); %Basophils 0.3 % (0.0-1.0); %Eosinophils 3.2 % (0.0-10.0); %Lymphocytes 21.5 % (21.0-51.0); %Monocytes 8.6 % (0.0-10.0); %Neutrophils 66.3 % (42.0-75.0); Hemoglobin 14.3 g/dL (12.0-16.0); Mean Corpuscular HGB CONC 33.3 g/dL (32.0-36.0); Mean Corpuscular Hemoglobin 30.3 pg (27.0-31.0); Mean Corpuscular Volume 90.9 fl (78.0-98.0); Platelet Count 398 10x3/uL (130-400); RBC Distribution Width 11.8 % (11.5-14.5); Red Blood Cell (RBC) Count 4.72 mill/uL (4.20-5.40); White Blood Cell (WBC) Count 7.8 10x3/uL (4.8-10.8)
[2022-10-03 05:48] LABS: Anion Gap 14 mmol/L (10-20); BUN (Urea Nitrogen) 8 mg/dL (9.8-20.1); Calc. Creatinine Clearance 61 mL/min (70-130); Carbon Dioxide 23 mmol/L (23-31); Cardiac Risk 3.3 (Less than 4.5); Chloride 103 mmol/L (98-107); Cholesterol 123 mg/dl (< 200 Desired); Estimated GFR 74; Glucose 101 mg/dL (83-110); HDL Cholesterol 37 mg/dL (>60 Neg Risk); LDL Cholesterol, Calculated 68 mg/dL; Potassium 3.6 mmol/L (3.5-5.1); Sodium 136 mmol/L (136-145); Triglycerides 91 mg/dL (Less than 150)
[2022-10-03] MEDS: Levothyroxine Sodium 50 MCG TAB PO SCH (06:07)
[2022-10-03] MEDS: Furosemide 20 MG/2 ML VIAL SLOW IVP SCH (06:07)
[2022-10-03] MEDS: Amlodipine 5 MG TAB PO SCH (08:45)
[2022-10-03] MEDS: Sacubitril 49 MG/Valsartan 51 MG TABLET PO SCH (08:45)
[2022-10-03] MEDS: Apixaban 5 MG TAB PO SCH (08:45)
[2022-10-03 09:25] VITALS: BP 139/81; TEMP 98.1
== END 2022-10-03 11:35 | disposition home or self-care (01) | DRG 280 ==
LOC: ERS 04:00 → OBSVTOIN 07:33 → ERHOLD 07:33 → 2NO 13:23
PROVIDERS: ADMIT Internal Medicine; ATTEND Hospitalist
PROC: 4A023N7 Measurement of Cardiac Sampling and Pressure, Left Heart, Percutaneous Approach (ICD-10-PCS; principal; 2022-10-02)
PROC: B2111ZZ Fluoroscopy of Multiple Coronary Arteries using Low Osmolar Contrast (ICD-10-PCS; 2022-10-02)
PROC: B2151ZZ Fluoroscopy of Left Heart using Low Osmolar Contrast (ICD-10-PCS; 2022-10-02)
DX: I21.4 Non-ST elevation (NSTEMI) myocardial infarction (principal); I50.33 Acute on chronic diastolic (congestive) heart failure; J18.9 Pneumonia, unspecified organism; I16.1 Hypertensive emergency; I11.0 Hypertensive heart disease with heart failure; E03.9 Hypothyroidism, unspecified; I48.91 Unspecified atrial fibrillation; E78.00 Pure hypercholesterolemia, unspecified; I25.10 Atherosclerotic heart disease of native coronary artery without angina pectoris; Z20.822 Contact with and (suspected) exposure to COVID-19; Z98.890 Other specified postprocedural states; Z79.01 Long term (current) use of anticoagulants; Z90.710 Acquired absence of both cervix and uterus; Z79.899 Other long term (current) drug therapy
CPT/HCPCS: 36415; 70450; 71045; 80048; 80053; 80061; 81003; 83690; 83880; 84145; 84484; 85025; 86140; 87449; 87899; 93005; 93306; 93458; 93798; 99152; C1769; J0153; J0696; J1644; J1650; J1940; J2001; J2250; J3010; J3490; J7030; J7050; Q9967; U0002

== ENCOUNTER 2022-10-17 14:33 | Outpatient (CLI) | payer MEDICARE, BC | END 2022-10-17 14:34 | disposition home or self-care (01) | LOC: BICMAMMO 14:33 | PROVIDERS: ATTEND Nurse Practitioner Family | DX: N63.12 Unspecified lump in the right breast, upper inner quadrant (principal); N60.01 Solitary cyst of right breast | CPT/HCPCS: 76642; 77065; G0279 ==

== ENCOUNTER 2023-01-15 11:55 | Outpatient (CLI) | payer MEDICARE, BC | END 2023-01-15 11:56 | disposition home or self-care (01) | LOC: BICRAD 11:55 | PROVIDERS: ATTEND Nurse Practitioner Family | DX: R09.89 Other specified symptoms and signs involving the circulatory and respiratory systems (principal) | CPT/HCPCS: 71046 ==

== ENCOUNTER 2023-10-08 11:52 | Outpatient (CLI) | payer BC, MEDICARE | END 2023-10-08 11:53 | disposition home or self-care (01) | LOC: BICMAMMO 11:52 | PROVIDERS: ATTEND Family Medicine | DX: Z12.31 Encounter for screening mammogram for malignant neoplasm of breast (principal); Z91.89 Other specified personal risk factors, not elsewhere classified | CPT/HCPCS: 77063; 77067 ==

== ENCOUNTER 2023-11-07 00:35 | Emergency (ER) | payer MEDICARE ==
[2023-11-07 02:25] LABS: Influenza A by NAA DETECTED (NotDetected); SARS-CoV-2 NAA Rapid Test Not Detected (NotDetected)
[2023-11-07 03:53] LABS: Troponin I Less than 0.010 ng/mL (< 0.028)
== END 2023-11-07 04:40 | disposition home or self-care (01) ==
LOC: ERS 00:35
DX: J10.1 Influenza due to other identified influenza virus with other respiratory manifestations (principal); I11.0 Hypertensive heart disease with heart failure; I50.9 Heart failure, unspecified; I48.91 Unspecified atrial fibrillation; E03.9 Hypothyroidism, unspecified; I25.2 Old myocardial infarction; Z79.01 Long term (current) use of anticoagulants; Z55.6 Problems related to health literacy; Z79.82 Long term (current) use of aspirin; Z79.899 Other long term (current) drug therapy
CPT/HCPCS: 0240U; 71045; 83880; 84484; 93005; 99285; 36415

== ENCOUNTER 2024-07-30 20:45 | Emergency (ER) | payer MEDICARE ==
[2024-07-30] MEDS ORDERED: Diltiazem HCl/D5W 125 ML ONE (20:52)
[2024-07-30 21:17] LABS: #Basophils 0.05 10x3/uL (0.0-0.2); %Basophils 0.5 % (0.0-1.0); %Eosinophils 3.3 % (0.0-10.0); %Lymphocytes 22.5 % (21.0-51.0); %Monocytes 7.1 % (0.0-10.0); %Neutrophils 66.4 % (42.0-75.0); Hemoglobin 13.8 g/dL (12.0-16.0); Mean Corpuscular HGB CONC 34.5 g/dL (32.0-36.0); Mean Corpuscular Hemoglobin 30.5 pg (27.0-31.0); Mean Corpuscular Volume 88.3 fL (78.0-98.0); Mean Platelet Volume 9.9 fL (7.4-10.4); Platelet Count 320 10x3/uL (130-400); RBC Distribution Width 12.3 % (11.5-14.5); Red Blood Cell (RBC) Count 4.53 mill/uL (4.20-5.40)
[2024-07-30 21:33] LABS: ALT (SGPT) 16 U/L (8-55); AST (SGOT) 16 U/L (5-34); Albumin 4.2 g/dL (3.4-4.8); Alkaline Phosphatase 102 U/L (40-110); Anion Gap 15 mmol/L (10-20); BUN (Urea Nitrogen) 8 mg/dL (9.8-20.1); Bilirubin, Total 0.4 mg/dL (0.2-1.2); Calc. Creatinine Clearance 0 mL/min (70-130); Carbon Dioxide 20 mmol/L (23-31); Chloride 105 mmol/L (98-107); Estimated GFR 73; Glucose 134 mg/dL (83-110); Potassium 3.5 mmol/L (3.5-5.1); Protein, Total 7.2 g/dL (5.8-8.1); Sodium 136 mmol/L (136-145)
[2024-07-30 21:37] LABS: Troponin I Less than 0.010 ng/mL (< 0.028)
[2024-07-31 01:20] LABS: Bacteria/HPF None Seen HPF (None Seen); Bilirubin Negative (Negative); Blood, Urine Negative (Negative); CAUTI Indications for Culture Dysuria,urgency,freq; Clarity Clear (Clear); Glucose, Urine (Dipstick) Normal (Negative); Ketone, Urine Negative (Negative); Leukocyte Negative Leu/uL (Negative); Nitrite Negative (Negative); Protein, Urine (Dipstick) 10 mg/dL (Neg-Trace); RBC/HPF 0-3 HPF (0-3); Specific Gravity, Urine 1.001 (1.002-1.036); Squamous Epithelial None Seen HPF (0-3); Urobilinogen Normal mg/dL (Less than 2); WBC/HPF 0-3 HPF (0-3)
[2024-07-31 01:23] LABS: Urine Culture Reflex No No
[2024-07-31 01:26] LABS: Anion Gap 13 mmol/L (10-20); BUN (Urea Nitrogen) 9 mg/dL (9.8-20.1); Calc. Creatinine Clearance 0 mL/min (70-130); Carbon Dioxide 25 mmol/L (23-31); Chloride 105 mmol/L (98-107); Estimated GFR 66; Glucose 123 mg/dL (83-110); Potassium 4.4 mmol/L (3.5-5.1); Sodium 139 mmol/L (136-145)
== END 2024-07-31 02:44 | disposition home or self-care (01) ==
LOC: ERS 20:45
DX: I48.91 Unspecified atrial fibrillation (principal); E03.9 Hypothyroidism, unspecified; I11.0 Hypertensive heart disease with heart failure; I50.9 Heart failure, unspecified; Z79.899 Other long term (current) drug therapy; Z79.82 Long term (current) use of aspirin
CPT/HCPCS: 36415; 71045; 80048; 80053; 81001; 83735; 83880; 84443; 84484; 85025; 93005; 94760; 96365

== ENCOUNTER 2024-09-23 09:08 | Outpatient (CLI) | payer MEDICARE ==
[2024-09-23 10:46] LABS: #Basophils 0.05 10x3/uL (0.0-0.2); %Basophils 0.7 % (0.0-1.0); %Eosinophils 3.5 % (0.0-10.0); %Lymphocytes 18.2 % (21.0-51.0); %Monocytes 7.3 % (0.0-10.0); Hematocrit 38.5 % (36.0-47.0); Hemoglobin 12.7 g/dL (12.0-16.0); Mean Corpuscular Hemoglobin 29.3 pg (27.0-31.0); Mean Corpuscular Volume 88.9 fL (78.0-98.0); Mean Platelet Volume 9.9 fL (7.4-10.4); Platelet Count 303 10x3/uL (130-400); RBC Distribution Width 12.4 % (11.5-14.5); Red Blood Cell (RBC) Count 4.33 mill/uL (4.20-5.40)
[2024-09-23 11:39] LABS: Calc. Creatinine Clearance 0 mL/min (70-130); Estimated GFR 80
[2024-09-23 11:40] LABS: ALT (SGPT) 14 U/L (8-55); AST (SGOT) 16 U/L (5-34); Albumin 3.8 g/dL (3.4-4.8); Alkaline Phosphatase 85 U/L (40-110); Anion Gap 10 mmol/L (10-20); BUN (Urea Nitrogen) 9 mg/dL (9.8-20.1); Bilirubin, Direct 0.2 mg/dL (0.1-0.3); Bilirubin, Total 0.6 mg/dL (0.2-1.2); Calcium 9.1 mg/dL (7.8-10.44); Carbon Dioxide 26 mmol/L (23-31); Chloride 105 mmol/L (98-107); Globulin 2.6 g/dL (2.4-3.5); Glucose 119 mg/dL (83-110); Potassium 4.1 mmol/L (3.5-5.1); Protein, Total 6.4 g/dL (5.8-8.1); Sodium 137 mmol/L (136-145)
== END 2024-09-23 09:09 | disposition home or self-care (01) ==
LOC: LABBT 09:08
PROVIDERS: ATTEND Internal Medicine Cardiovascular Disease
DX: Z01.818 Encounter for other preprocedural examination (principal); R06.02 Shortness of breath
CPT/HCPCS: 80053; 80076; 85025; 93005; 93010

== ENCOUNTER 2024-09-24 06:16 | Emergency (ER) | payer MEDICARE ==
[2024-09-24 06:45] LABS: #Basophils 0.05 10x3/uL (0.0-0.2); %Basophils 0.6 % (0.0-1.0); %Eosinophils 1.9 % (0.0-10.0); %Monocytes 5.4 % (0.0-10.0); Hematocrit 38.3 % (36.0-47.0); Hemoglobin 13.2 g/dL (12.0-16.0); Mean Corpuscular HGB CONC 34.5 g/dL (32.0-36.0); Mean Corpuscular Hemoglobin 29.7 pg (27.0-31.0); Mean Corpuscular Volume 86.3 fL (78.0-98.0); Mean Platelet Volume 9.6 fL (7.4-10.4); Platelet Count 309 10x3/uL (130-400); RBC Distribution Width 12.3 % (11.5-14.5); Red Blood Cell (RBC) Count 4.44 mill/uL (4.20-5.40)
[2024-09-24 07:01] LABS: ALT (SGPT) 17 U/L (8-55); AST (SGOT) 23 U/L (5-34); Albumin 4.2 g/dL (3.4-4.8); Alkaline Phosphatase 94 U/L (40-110); Anion Gap 13 mmol/L (10-20); BUN (Urea Nitrogen) 6 mg/dL (9.8-20.1); Bilirubin, Total 0.6 mg/dL (0.2-1.2); Calc. Creatinine Clearance 0 mL/min (70-130); Calcium 9.3 mg/dL (7.8-10.44); Carbon Dioxide 22 mmol/L (23-31); Chloride 106 mmol/L (98-107); Estimated GFR 71; Glucose 142 mg/dL (83-110); Potassium 4.3 mmol/L (3.5-5.1); Protein, Total 7.2 g/dL (5.8-8.1); Sodium 137 mmol/L (136-145)
[2024-09-24 07:06] LABS: Troponin I Less than 0.010 ng/mL (< 0.028)
== END 2024-09-24 07:15 | disposition home or self-care (01) ==
LOC: ERS 06:16
DX: I11.0 Hypertensive heart disease with heart failure (principal); I50.9 Heart failure, unspecified; R19.7 Diarrhea, unspecified; I25.2 Old myocardial infarction; I48.91 Unspecified atrial fibrillation; Z79.82 Long term (current) use of aspirin; Z79.01 Long term (current) use of anticoagulants; Z79.899 Other long term (current) drug therapy
CPT/HCPCS: 80053; 84484; 85025; 93005; 94760; 99285

== ENCOUNTER 2024-10-01 05:44 | Day surgery (SDC) | payer MEDICARE ==
[2024-09-30 10:36] VITALS: BMI 31.2
[2024-10-01] MEDS ORDERED: Heparin 10,000 UNITS/ 10 ML VIAL ONE (06:11)
[2024-10-01] MEDS ORDERED: fentaNYL 50 mcg/mL 1 mL Vial ONE ×2 (06:11→08:03)
[2024-10-01] MEDS ORDERED: Verapamil 5 MG/2 ML VIAL ONE (06:11)
[2024-10-01] MEDS ORDERED: Midazolam HCl 2 mg/2 ml Vial ONE (06:11)
[2024-10-01] MEDS ORDERED: Nitroglycerin 50 MG/250 ML BOT 0 ML ONE (06:12)
[2024-10-01] MEDS ORDERED: Atropine Sulfate 1 mg/10 ml Syringe ONE (08:03)
[2024-10-01] MEDS ORDERED: Clopidogrel Bisulfate 300 MG TAB ONE (08:13)
== END 2024-10-01 14:40 | disposition home or self-care (01) ==
LOC: CCL 05:44
PROVIDERS: ATTEND Internal Medicine Cardiovascular Disease
PROC: 4A023N7 Measurement of Cardiac Sampling and Pressure, Left Heart, Percutaneous Approach (ICD-10-PCS; principal; 2024-10-01)
DX: R06.00 Dyspnea, unspecified (principal); I48.91 Unspecified atrial fibrillation; I48.92 Unspecified atrial flutter; I25.10 Atherosclerotic heart disease of native coronary artery without angina pectoris; I10 Essential (primary) hypertension; E78.5 Hyperlipidemia, unspecified; E03.9 Hypothyroidism, unspecified; K21.9 Gastro-esophageal reflux disease without esophagitis; Z90.710 Acquired absence of both cervix and uterus; Z79.82 Long term (current) use of aspirin; Z79.01 Long term (current) use of anticoagulants; Z79.899 Other long term (current) drug therapy
CPT/HCPCS: 85347 ×2; 93005; 93458; C1760; C1769 ×2; C1874; C1887 ×2; C9600; J1644; J2250; J3010; 92928; 93010; 99152; 99153; J0461